=== PATIENT | male | born 1945 | race Caucasian/White ===

== ENCOUNTER 2023-10-16 10:42 | Emergency (ER) | payer MEDICARE, OTHER ==
[~2023-10-16] VITALS: Ht 177.8 cm; Wt 93.0 kg
[2023-10-16] MEDS ORDERED: HYDROmorphone HCL 1 MG/ML SYR IV ONE (11:15)
[2023-10-16] MEDS ORDERED: SODIUM CHLORIDE 0.9% 1,000 ML IV ONE (11:15)
[2023-10-16] MEDS ORDERED: LOSARTAN POTASS25 MG PO (11:15)
[2023-10-16] MEDS ORDERED: ondansetron HCL 4 MG/2 ML VIAL IV PRN (11:15)
[2023-10-16] MEDS ORDERED: ALLOPURINOL100 MG PO (11:15)
[2023-10-16] MEDS ORDERED: ROSUVASTATIN CA40 MG PO (11:16)
[2023-10-16] MEDS ORDERED: ISOSORBIDE DINI30 MG PO (11:17)
[2023-10-16] MEDS ORDERED: FARXIGA10 MG PO (11:18)
[2023-10-16] MEDS ORDERED: VAZALORE81 MG PO (11:19)
[2023-10-16] MEDS ORDERED: FLEVOXIN TABLE1 EACH PO (11:19)
[2023-10-16 11:51] LABS: BASOPHILS 0.5 % (0-2); EOSINOPHILS 8.4 % (0-6); HEMATOCRIT 48.4 % (35.0-50.0); HEMOGLOBIN 16.1 g/dL (12.0-18.0); LYMPHOCYTES 20.3 % (24-44); MCH 31.3 (27-36); MCHC 33.4 g/dl (30-36); MCV 93.7 fl (81-99); MONOCYTES 6.2 % (0-12); NEUTROPHILS 64.6 % (39-80); RBC 5.16 M/ul (4.3-5.7); RDW 15.3 (10.5-15.0)
[2023-10-16 12:25] LABS: PLATELET COUNT 300 K/uL (140-440)
[2023-10-16 12:29] LABS: BILIRUBIN, URINE NEGATIVE (negative); BLOOD/HGB, URINE SMALL (Negative); KETONE, URINE NEGATIVE (Negative); LEUK ESTERASE, URINE NEGATIVE (negative); NITRITE, URINE NEGATIVE (negative)
[2023-10-16 12:46] LABS: BACTERIA, URINE RARE /hpf (negative); CASTS, URINE NONE SEEN \\lpf; COLLECTION TYPE, URINE CLEAN CATCH; CRYSTALS, URINE NONE SEEN (0-1+); EPITHELIAL CELLS, URINE SQUAMOUS 1+ /lpf (0-1+); RED BLOOD CELLS, URINE 0-1 /hpf (0-5); REFLEX CULTURE, URINE No (No); WHITE BLOOD CELLS, URINE 0-1 /HPF (0-5)
[2023-10-16 12:59] LABS: ALBUMIN 3.1 g/dL (3.4-5.0); ALBUMIN/GLOBULIN RATIO 0.82 (1.1-2.4); ANION GAP 12.8 (7-21); BILIRUBIN, TOTAL 0.4 ng/dL (0.2-1.0); BUN/CREATININE RATIO 16.74 (6.0-28.6); CALCIUM 9.9 mg/dL (8.5-10.1); CREATININE, SERUM 2.09 mg/dL (0.70-1.30); POTASSIUM 3.8 mmol/L (3.5-5.1); PROTEIN, TOTAL 6.9 g/dL (6.4-8.2)
[2023-10-16] MEDS ORDERED: OXYCODONE HCL5 MG PO (13:38)
[2023-10-16 13:46] VITALS: BP 123/69
== END 2023-10-16 13:47 | disposition home or self-care (01) ==
LOC: ED 10:42
PROVIDERS: Emergency Medicine
DX: N20.0 Calculus of kidney (principal); N28.89 Other specified disorders of kidney and ureter; E11.9 Type 2 diabetes mellitus without complications; I25.10 Atherosclerotic heart disease of native coronary artery without angina pectoris; I50.9 Heart failure, unspecified; Z79.82 Long term (current) use of aspirin; Z79.899 Other long term (current) drug therapy
CPT/HCPCS: 36415; 74176; 80053; 81001; 85025; 85060; 96361; 96374; 96375; 99284-25; J1170; J2405; J7030